=== PATIENT | female | born 1985 | race Caucasian/White ===

== ENCOUNTER 2016-09-18 03:57 | Emergency (ER) | payer MEDICAID ==
[2016-09-18 04:08] VITALS: BP 139/69
--- NOTE | 2016-09-18 04:20 | EDM.PDOC ---
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 AND BLEEDING Time Seen by Provider: 09/18/16 04:18 - History of Present Illness INITIAL COMMENTS - FREE TEXT/NARRATIVE: 31-year-old female presents emergency room with a known positive test 2 days of spotting and generally not feeling well. Patient had a single episode of spotting a couple of days ago. This is light and now she has discontinued pinkish discharge. Patient is unsure of her last menstrual period in July she had a very light period. At this time she complains of generalized abdominal discomfort and just doesn't feel that well. She complains been under a lot of stress for the last several months. Patient was recently seen in the clinic and had a positive test. Lower Abdomen Pain Score (Numeric/FACES): 4 - Related Data Allergies Allergy/AdvReac Type Severity Reaction Status Date / Time No Known Allergies Allergy Verified 09/18/16 04:08 Home Meds: Home Meds . 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 Hematologic History: Reports: Bleeding Disorder Other Hematologic History: factor V Social & Family History - Family History Family Medical History: Noncontributory - Tobacco Use Smoking Status *Q: Current Every Day Smoker Years of Tobacco use: 5 Packs/Tins Daily: 0.5 - Caffeine Use Caffeine Use: Reports: None - Alcohol Use Days Per Week of Alcohol Use: 1 Number of Drinks Per Day: 2 Total Drinks Per Week: 2 - Recreational Drug Use Recreational Drug Use: Yes Recreational Drug Type: Reports: Marijuana/Hashish ED ROS GENERAL - Review of Systems Review Of Systems: See Below Constitutional: Reports: Malaise, Fatigue. Denies: Fever, Chills HEENT: Denies: No Symptoms Respiratory: Denies: No Symptoms Cardiovascular: Denies: No Symptoms GI/Abdominal: Reports: Abdominal Pain. Denies: Constipation, Diarrhea, Nausea, Vomiting : Reports: Discharge. Denies: Dysuria, Frequency, Urgency Psychiatric: Denies: Homicidal Ideation, Mood Lability, Suicidal Ideation ED EXAM - Physical Exam Exam: See Below Exam Limited By: No Limitations General Appearance: Alert, No Apparent Distress Head: Atraumatic Neck: Normal Inspection. No: Lymphadenopathy (L), Lymphadenopathy (R) Respiratory/Chest: No Respiratory Distress, Lungs Clear, Normal Breath Sounds Cardiovascular: Regular Rate, Rhythm, No Edema, No Murmur GI/Abdominal: Normal Bowel Sounds, Soft, Other (Vague mild diffuse tenderness no rebound or guarding the tenderness does not seem to be worse in any specific area) Heart Tones: Not Holmes Back Exam: Normal Inspection. No: CVA Tenderness (L), CVA Tenderness (R) Extremities: Normal Inspection, No Pedal Edema Course - Vital Signs Last Recorded V/S: Last Vital Signs Temp 36.4 C 09/18/16 04:02 Pulse 80 09/18/16 04:02 Resp 18 09/18/16 04:02 BP 139/69 09/18/16 04:02 Pulse Ox 100 09/18/16 04:02 - Orders/Labs/Meds Orders: Active Orders 24 hr Category Date Time Status OB Transvaginal [US] Stat Exams 09/18/16 06:34 Ordered GC/CHLAMYDIA BY PCR [MOLEC] Stat Lab 09/18/16 04:29 Ordered Labs: Laboratory Tests 09/18/16 09/18/16 09/18/16 Range/Units 04:40 04:40 04:47 WBC 9.78 (3.98-10.04) K/mm3 RBC 4.64 (3.98-5.22) M/mm3 Hgb 14.7 (11.2-15.7) gm/L Hct 43.4 (34.1-44.9) % MCV 93.5 (79.4-94.8) fl MCH 31.7 (25.6-32.2) pg MCHC 33.9 (32.2-35.5) g/dl RDW Std Deviation 43.4 (36.4-46.3) fL Plt Count 168 L (182-369) K/mm3 MPV 10.0 (9.4-12.3) fl Neutrophils % (Manual) 74 H (40-60) % Band Neutrophils % 4 (0-10) % Lymphocytes % (Manual) 14 L (20-40) % Atypical Lymphs % 0 % Monocytes % (Manual) 7 (2-10) % Eosinophils % (Manual) 1 (0.7-5.8) % Basophils % (Manual) 0 L (0.1-1.2) Platelet Estimate Adequate RBC Morph Comment Normal Sodium (136-145) mEq/L Potassium (3.5-5.1) mEq/L Chloride (98-107) mEq/L Carbon Dioxide (21-32) mEq/L Anion Gap (5-15) BUN (7-18) mg/dL Creatinine (0.55-1.02) mg/dL Est Cr Clr Drug Dosing mL/min Estimated GFR (MDRD) (>60) mL/min BUN/Creatinine Ratio (14-18) Glucose (74-106) mg/dL Calcium (8.5-10.1) mg/dL Total Bilirubin (0.2-1.0) mg/dL AST (15-37) U/L ALT (14-59) U/L Alkaline Phosphatase (46-116) U/L Total Protein (6.4-8.2) g/dl Albumin (3.4-5.0) g/dl Globulin gm/dL Albumin/Globulin Ratio (1-2) HCG, Quant mIU/mL Urine Color Light yellow (Yellow) Urine Appearance Slt cloudy H (Clear) Urine pH 7.0 (5.0-8.0) Ur Specific [place] 1.010 (1.005-1.030) Urine Protein Negative (Negative) Urine Glucose (UA) Negative (Negative) Urine Ketones Negative (Negative) Urine Occult Blood Negative (Negative) Urine Nitrite Negative (Negative) Urine Bilirubin Negative (Negative) Urine Urobilinogen 0.2 (0.2-1.0) Ur Leukocyte Esterase Negative (Negative) Urine RBC 0-5 (0-5) /hpf Urine WBC 0-5 (0-5) /hpf Ur Epithelial Cells 0-5 (0-5) /hpf Urine Bacteria Rare (FEW) /hpf Urine Mucus Not seen (FEW) /hpf Urine Opiates Screen Negative (NEGATIVE) Ur Buprenorphine Scrn Negative (NEGATIVE) Ur Oxycodone Screen Negative (NEGATIVE) Urine Methadone Screen Negative (NEGATIVE) Ur Propoxyphene Screen Negative (NEGATIVE) Ur Barbiturates Screen Negative (NEGATIVE) Ur Tricyclics Screen Negative (NEGATIVE) Ur Phencyclidine Scrn Negative (NEGATIVE) Ur Amphetamine Screen Negative (NEGATIVE) U Methamphetamines Scrn Negative (NEGATIVE) U Benzodiazepines Scrn Negative (NEGATIVE) U Cocaine Metab Screen Negative (NEGATIVE) U Marijuana (THC) Screen Presumptive positive H (NEGATIVE) Ethyl Alcohol (0.00) gm% Blood Type Gel Antibody Screen 09/18/16 09/18/16 Range/Units 04:47 04:47 WBC (3.98-10.04) K/mm3 RBC (3.98-5.22) M/mm3 Hgb (11.2-15.7) gm/L Hct (34.1-44.9) % MCV (79.4-94.8) fl MCH (25.6-32.2) pg MCHC (32.2-35.5) g/dl RDW Std Deviation (36.4-46.3) fL Plt Count (182-369) K/mm3 MPV (9.4-12.3) fl Neutrophils % (Manual) (40-60) % Band Neutrophils % (0-10) % Lymphocytes % (Manual) (20-40) % Atypical Lymphs % % Monocytes % (Manual) (2-10) % Eosinophils % (Manual) (0.7-5.8) % Basophils % (Manual) (0.1-1.2) Platelet Estimate RBC Morph Comment Sodium 140 (136-145) mEq/L Potassium 3.9 (3.5-5.1) mEq/L Chloride 108 H (98-107) mEq/L Carbon Dioxide 25 (21-32) mEq/L Anion Gap 10.9 (5-15) BUN 8 (7-18) mg/dL Creatinine 0.7 (0.55-1.02) mg/dL Est Cr Clr Drug Dosing 116.39 mL/min Estimated GFR (MDRD) > 60 (>60) mL/min BUN/Creatinine Ratio 11.4 L (14-18) Glucose 125 H (74-106) mg/dL Calcium 9.0 (8.5-10.1) mg/dL Total Bilirubin 0.6 (0.2-1.0) mg/dL AST 18 (15-37) U/L ALT 39 (14-59) U/L Alkaline Phosphatase 75 (46-116) U/L Total Protein 6.9 (6.4-8.2) g/dl Albumin 3.6 (3.4-5.0) g/dl Globulin 3.3 gm/dL Albumin/Globulin Ratio 1.1 (1-2) HCG, Quant 79817.0 mIU/mL Urine Color (Yellow) Urine Appearance (Clear) Urine pH (5.0-8.0) Ur Specific [place] (1.005-1.030) Urine Protein (Negative) Urine Glucose (UA) (Negative) Urine Ketones (Negative) Urine Occult Blood (Negative) Urine Nitrite (Negative) Urine Bilirubin (Negative) Urine Urobilinogen (0.2-1.0) Ur Leukocyte Esterase (Negative) Urine RBC (0-5) /hpf Urine WBC (0-5) /hpf Ur Epithelial Cells (0-5) /hpf Urine Bacteria (FEW) /hpf Urine Mucus (FEW) /hpf Urine Opiates Screen (NEGATIVE) Ur Buprenorphine Scrn (NEGATIVE) Ur Oxycodone Screen (NEGATIVE) Urine Methadone Screen (NEGATIVE) Ur Propoxyphene Screen (NEGATIVE) Ur Barbiturates Screen (NEGATIVE) Ur Tricyclics Screen (NEGATIVE) Ur Phencyclidine Scrn (NEGATIVE) Ur Amphetamine Screen (NEGATIVE) U Methamphetamines Scrn (NEGATIVE) U Benzodiazepines Scrn (NEGATIVE) U Cocaine Metab Screen (NEGATIVE) U Marijuana (THC) Screen (NEGATIVE) Ethyl Alcohol 0.00 (0.00) gm% Blood Type O POSITIVE Gel Antibody Screen Negative - Re-Assessments/Exams Free Text/Narrative Re-Assessment/Exam: 09/18/16 05:07 Awaiting labs. Patient refused pelvic exam 09/18/16 05:39 Still awaiting her labs. 09/18/16 06:33 Finally have the quantitative hCG discussed the findings of this with the patient at this time she consents to an ultrasound. 09/18/16 07:14 The patient left the emergency department prior to getting the ultrasound done or anything resembling discharge instructions. Departure - Departure Time of Disposition: 07:15 Disposition: Eloped 07 Clinical Impression: Threatened , Pelvic pain during - Discharge Information Forms: ED Department Discharge - My Orders Last 24 Hours: My Active Orders 09/18/16 04:29 GC/CHLAMYDIA BY PCR [MOLEC] Stat 09/18/16 06:34 OB Transvaginal [US] Stat - Assessment/Plan Last 24 Hours: My Active Orders 09/18/16 04:29 GC/CHLAMYDIA BY PCR [MOLEC] Stat 09/18/16 06:34 OB Transvaginal [US] Stat
== END 2016-09-18 07:05 | disposition left against medical advice (07) ==
LOC: JD.ED 03:57
DX: O20.0 Threatened abortion (principal); F17.210 Nicotine dependence, cigarettes, uncomplicated
CPT/HCPCS: 36415; 80053; 80306; 81001; 84702; 85025; 86850; 86900; 86901; 99284; G0480; 99283

== ENCOUNTER 2017-05-10 21:40 | Inpatient (IN) | payer MEDICAID ==
[2017-05-10] MEDS ORDERED: Nalbuphine 20 MG/1 ML Amp IVPUSH PRN (22:40)
[2017-05-10] MEDS ORDERED: Sodium Chloride 0.9% 10 ML Syringe FLUSH PRN (22:40)
[2017-05-10] MEDS ORDERED: Ondansetron 4 MG/2 ML SDV IVPUSH PRN (22:40)
[2017-05-10] MEDS ORDERED: Oxytocin/Lactated Ringers 10 UNIT/1,000 ML BAG IV SCH ×2 (22:45)
[2017-05-11] MEDS: Lactated Ringers 1,000 ML IV SCH ×4 (00:03→03:57)
[2017-05-11] MEDS ORDERED: Aluminum Hydroxide/Magnesium Hydroxide/Simethicone Susp 30 ML Cup PO ONE (00:15)
[2017-05-11] MEDS ORDERED: diphenhydrAMINE 50 MG/ML SDV IVPUSH PRN (00:24)
[2017-05-11] MEDS ORDERED: fentaNYL 100 MCG/2 ML SDV EPIDUR PRN (00:24)
[2017-05-11] MEDS ORDERED: ePHEDrine 50 MG/ML SDV IVPUSH PRN (00:26)
[2017-05-11] MEDS ORDERED: Bupivacaine/fentaNYL/NS 100 ML Bag EPIDUR SCH (00:30)
--- NOTE | 2017-05-11 01:11 | PCM.PREANE ---
Preanesthetic Assessment - Anesthesia/Transfusion/Family Hx Anesthesia History: Prior Anesthesia Without Reaction Family History of Anesthesia Reaction: No Transfusion History: No Prior Transfusion(s) - Review of Systems General: No Symptoms Pulmonary: No Symptoms Cardiovascular: No Symptoms Gastrointestinal: Other (Heart burn with ) Neurological: No Symptoms Other: Reports: None - Physical Assessment Pulse: 66 O2 Sat by Pulse Oximetry: 98 Respiratory Rate: 15 Vital Signs: Last Vital Signs Temp 36.4 C 05/10/17 21:59 Pulse 66 05/10/17 23:04 Resp 15 05/10/17 21:59 BP 121/72 05/10/17 21:59 Pulse Ox 98 05/10/17 21:59 Height: 1.75 m Weight: 114.986 kg ASA Class: 2 Mental Status: Alert & Oriented x3 Airway Class: Mallampati = 1 Dentition: Reports: Normal Dentition Thyro-Mental Finger Breadths: 3 Mouth Opening Finger Breadths: 3 ROM/Head Extension: Full Lungs: Clear to Auscultation, Normal Respiratory Effort Cardiovascular: Regular Rate, Regular Rhythm - Lab Values: Laboratory Last Values WBC 9.83 K/mm3 (3.98-10.04) 05/10/17 22:50 RBC 4.12 M/mm3 (3.98-5.22) 05/10/17 22:50 Hgb 13.3 gm/L (11.2-15.7) 05/10/17 22:50 Hct 38.6 % (34.1-44.9) 05/10/17 22:50 MCV 93.7 fl (79.4-94.8) 05/10/17 22:50 MCH 32.3 pg (25.6-32.2) H 05/10/17 22:50 MCHC 34.5 g/dl (32.2-35.5) 05/10/17 22:50 RDW Std Deviation 44.8 fL (36.4-46.3) 05/10/17 22:50 Plt Count 169 K/mm3 (182-369) L 05/10/17 22:50 MPV 10.0 fl (9.4-12.3) 05/10/17 22:50 Neut % (Auto) 66.6 % (34.0-71.1) 05/10/17 22:50 Lymph % (Auto) 19.9 % (19.3-51.7) 05/10/17 22:50 [place] % (Auto) 12.0 % (4.7-12.5) 05/10/17 22:50 Eos % (Auto) 0.7 (0.7-5.8) 05/10/17 22:50 Baso % (Auto) 0.1 % (0.1-1.2) 05/10/17 22:50 Neut # (Auto) 6.54 K/mm3 (1.56-6.13) H 05/10/17 22:50 Lymph # (Auto) 1.96 K/mm3 (1.18-3.74) 05/10/17 22:50 [place] # (Auto) 1.18 K/mm3 (0.24-0.36) H 05/10/17 22:50 Eos # (Auto) 0.07 K/mm3 (0.04-0.36) 05/10/17 22:50 Baso # (Auto) 0.01 K/mm3 (0.01-0.08) 05/10/17 22:50 - Allergies Allergies/Adverse Reactions: Allergies Allergy/AdvReac Type Severity Reaction Status Date / Time No Known Allergies Allergy Verified 09/18/16 04:08 - Acknowledgements Anesthesia Type Planned: Epidural Pt an Appropriate Candidate for the Planned Anesthesia: Yes Alternatives and Risks of Anesthesia Discussed w Pt/Guardian: Yes Pt/Guardian Understands and Agrees with Anesthesia Plan: Yes PreAnesthesia Questionnaire - Past Health History 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 History: Denies 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: , 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 Psychiatric History: Reports: Anxiety Hematologic History: Reports: 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 - Past Surgical History HEENT Surgical History: Reports: Oral Surgery - SUBSTANCE USE Smoking Status *Q: Former Smoker Tobacco Use Within Last Twelve Months: Cigarettes Second Hand Smoke Exposure: Yes Days Per Week of Alcohol Use: 1 Number of Drinks Per Day: 2 Total Drinks Per Week: 2 Recreational Drug Use History: Yes Recreational Drug Type: Reports: Marijuana/Hashish - HOME MEDS Home Medications: Home Meds Multivitamin [Multi-Vitamin Daily] 1 tab PO DAILY 05/10/17 [History] - CURRENT (IN HOUSE) MEDS Current Meds: Current Medications Diphenhydramine HCl (Benadryl) 25 mg IVPUSH Q6H PRN PRN Reason: Pruritis Ephedrine Sulfate (Ephedrine Sulfate) 5 mg IVPUSH ASDIRECTED PRN PRN Reason: Hypotension Fentanyl (Sublimaze) 100 mcg EPIDUR ONETIME PRN PRN Reason: Pain Last Admin: 05/11/17 01:07 Dose: 100 mcg Fentanyl/Bupivacaine HCl (Fentanyl/Bupivacaine/Ns 2 Mcg-0.125% 100 Ml) 100 ml EPIDUR ASDIRECTED NATHANAEL Last Admin: 05/11/17 01:07 Dose: 100 ml Lactated Ringer's (Ringers, Lactated) 1,000 mls @ 100 mls/hr IV ASDIRECTED NATHANAEL Last Admin: 05/11/17 00:35 Dose: 999 mls/hr Oxytocin/Lactated Ringer's (Pitocin In Lr 10 Units/1,000 Ml) 10 unit in 1,000 mls @ 500 mls/hr IV .CONTINUOUS NATHANAEL PRN Reason: Protocol Oxytocin/Lactated Ringer's (Pitocin In Lr 10 Units/1,000 Ml) 10 unit in 1,000 mls @ 12 mls/hr IV TITRATE NATHANAEL; 2 MUNITS/MIN PRN Reason: Protocol Last Admin: 05/11/17 00:01 Dose: 2 munits/min, 12 mls/hr Nalbuphine HCl (Nubain) 10 mg IVPUSH Q2H PRN PRN Reason: Pain (moderate 4-6) Ondansetron HCl (Zofran) 4 mg IVPUSH Q4H PRN PRN Reason: Nausea/Vomiting Sodium Chloride (Saline Flush) 10 ml FLUSH ASDIRECTED PRN PRN Reason: Keep Vein Open Discontinued Medications Al Hydroxide/Mg Hydroxide (Mag-Al Plus) 30 ml PO ONETIME ONE Stop: 05/11/17 00:16
[2017-05-11] MEDS ORDERED: Calcium Carbonate 500 MG Tab.Chew PO PRN (04:54)
[2017-05-11] MEDS ORDERED: Witch Hazel Medicated Pads 100/Jar TOP PRN (09:08)
[2017-05-11] MEDS ORDERED: Lanolin 100% Cream 7 GM Tube TOP PRN (09:08)
[2017-05-11] MEDS ORDERED: Docusate Sodium 100 MG Cap PO PRN (09:08)
--- NOTE | 2017-05-11 09:12 | PCM.LDHP ---
L&D History of Present Illness - General Date of Service: 05/11/17 Admit Problem/Dx: Patient Status Order with Admit Dx/Problem 05/10/17 22:40 Patient Status [ADT] Routine 05/11/17 09:08 Patient Status [ADT] Routine Admission Diagnosis/Problem Admission Diagnosis/Problem Normal labor Source of Information: Patient History Limitations: Reports: No Limitations - History of Present Illness Introduction:: 32 year old at 38w6 days here with SROM. 2 cm. No regular contractions. 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 - Past Surgical History HEENT Surgical History: Reports: Oral Surgery Social & Family History - Family History Family Medical History: Noncontributory - Tobacco Use Smoking Status *Q: Former Smoker Years of Tobacco use: 6 Packs/Tins Daily: 0.5 Used Tobacco, but Quit: Yes Month Tobacco Last Used: october Second Hand Smoke Exposure: Yes - Caffeine Use Caffeine Use: Reports: None - Alcohol Use Days Per Week of Alcohol Use: 1 Number of Drinks Per Day: 2 Total Drinks Per Week: 2 - Recreational Drug Use Recreational Drug Use: Yes Recreational Drug Type: Reports: Marijuana/Hashish H&P Review of Systems - Review of Systems: Review Of Systems: See Below General: Reports: No Symptoms HEENT: Reports: No Symptoms Pulmonary: Reports: No Symptoms Cardiovascular: Reports: No Symptoms Gastrointestinal: Reports: No Symptoms Genitourinary: Reports: No Symptoms Musculoskeletal: Reports: No Symptoms Skin: Reports: No Symptoms Psychiatric: Reports: No Symptoms Neurological: Reports: No Symptoms Hematologic/Lymphatic: Reports: No Symptoms Immunologic: Reports: No Symptoms L&D Exam - Exam Exam: See Below - Vital Signs Vital Signs: Last Vital Signs Temp 36.4 C 05/10/17 21:59 Pulse 66 05/11/17 01:10 Resp 15 05/11/17 01:10 BP 121/72 05/10/17 21:59 Pulse Ox 98 05/11/17 01:10 Weight: 114.986 kg - OB Specific Contraction Intensity: Mild Heart Tones per Min: 145 Heart Rate (FHR) Variability: Moderate (6-25 bmp) Presentation: Vertex - Washburn Score Washburn Score Cervix Position: Midposition Washburn Score Consistency: Soft Washburn Score Effacement: >80% Washburn Score Dilation: 1-2 cm Washburn Score Infant's Station: -3 Washburn Score Total: 7 - Exam General: Alert, Oriented HEENT: PERRLA, Conjunctiva Clear, EACs Clear, EOMI, Hearing Intact, Mucosa Moist & [place], Nares Patent, Normal Nasal Septum, Posterior Pharynx Clear, TMs Clear Neck: Supple, Trachea Midline Lungs: Clear to Auscultation, Normal Respiratory Effort Cardiovascular: Regular Rate, Regular Rhythm GI/Abdominal Exam: Normal Bowel Sounds, Soft, Non-Tender, No Organomegaly, No Distention, No Abnormal Bruit, No Mass, Pelvis Stable Genitourinary: Normal external exam, Normal bimanual exam, Normal speculum exam Back Exam: Normal Inspection, Full Range of Motion Extremities: Normal Inspection, Normal Range of Motion, Non-Tender, No Pedal Edema, Normal Capillary Refill Skin: Warm, Dry, Intact Neurological: Cranial Nerves Intact, Reflexes Equal Bilateral Psychiatric: Alert, Normal Affect, Normal Mood - Patient Data Lab Results Last 24 hrs: Laboratory Results - last 24 hr 05/10/17 Range/Units 22:50 WBC 9.83 (3.98-10.04) K/mm3 RBC 4.12 (3.98-5.22) M/mm3 Hgb 13.3 (11.2-15.7) gm/L Hct 38.6 (34.1-44.9) % MCV 93.7 (79.4-94.8) fl MCH 32.3 H (25.6-32.2) pg MCHC 34.5 (32.2-35.5) g/dl RDW Std Deviation 44.8 (36.4-46.3) fL Plt Count 169 L (182-369) K/mm3 MPV 10.0 (9.4-12.3) fl Neut % (Auto) 66.6 (34.0-71.1) % Lymph % (Auto) 19.9 (19.3-51.7) % [place] % (Auto) 12.0 (4.7-12.5) % Eos % (Auto) 0.7 (0.7-5.8) Baso % (Auto) 0.1 (0.1-1.2) % Neut # (Auto) 6.54 H (1.56-6.13) K/mm3 Lymph # (Auto) 1.96 (1.18-3.74) K/mm3 [place] # (Auto) 1.18 H (0.24-0.36) K/mm3 Eos # (Auto) 0.07 (0.04-0.36) K/mm3 Baso # (Auto) 0.01 (0.01-0.08) K/mm3 Result Diagrams: 05/10/17 22:50 Problem List Initiated/Reviewed/Updated: Yes Orders Last 24hrs: Active Orders 24 hr Category Date Time Status Patient Status [ADT] Routine ADT 05/10/17 22:40 Active Patient Status [ADT] Routine ADT 05/11/17 09:08 Ordered Activity as Tolerated [RC] PER UNIT ROUTINE Care 05/11/17 09:08 Ordered Activity as Tolerated [RC] PFP Care 05/10/17 22:40 Active Communication Order [RC] ASDIRECTED Care 05/10/17 22:40 Active Heart Tones [RC] ASDIRECTED Care 05/10/17 22:40 Active Notify Provider [RC] ASDIRECTED Care 05/11/17 00:24 Active Notify Provider [RC] PFP Care 05/10/17 22:40 Active Notify Provider [RC] PRN Care 05/10/17 22:40 Active Peripheral IV Care [RC] . DIRECTED Care 05/10/17 22:40 Active Pump Management, Intrathecal [RC] ASDIRECTED Care 05/10/17 22:43 Active Urinary Catheter Assessment [RC] ASDIRECTED Care 05/10/17 22:40 Active Vital Signs [RC] ASDIRECTED Care 05/11/17 09:08 Ordered Vital Signs [RC] PER UNIT ROUTINE Care 05/10/17 22:40 Active Regular Diet [DIET] Diet 05/10/17 Dinner Active Bupivacaine/fentaNYL/NS [fentaNYL/Bupivacaine/NS 2 MCG- Med 05/11/17 00:30 Active 0.125% 100 ML] 100 ml EPIDUR ASDIRECTED Calcium Carbonate [Tums] Med 05/11/17 04:54 Active 1,000 mg PO Q2H PRN Docusate Sodium [Colace] Med 05/11/17 09:08 Ordered 100 mg PO BID PRN Ibuprofen [Motrin] Med 05/11/17 09:08 Ordered 600 mg PO Q6H PRN Lactated Ringers [Ringers, Lactated] 1,000 ml Med 05/10/17 22:45 Active IV ASDIRECTED Lanolin [Lansinoh HPA] Med 05/11/17 09:08 Ordered See Dose Instructions TOP ASDIRECTED PRN Nalbuphine [Nubain] Med 05/10/17 22:40 Active 10 mg IVPUSH Q2H PRN Ondansetron [Zofran] Med 05/10/17 22:40 Active 4 mg IVPUSH Q4H PRN Oxytocin/Lactated Ringers [Pitocin in LR 10 Units/1,000 Med 05/10/17 22:45 Active ML] 10 unit in 1,000 ml IV .CONTINUOUS Oxytocin/Lactated Ringers [Pitocin in LR 10 Units/1,000 Med 05/10/17 22:45 Active ML] 10 unit in 1,000 ml IV TITRATE Sodium Chloride 0.9% [Saline Flush] Med 05/10/17 22:40 Active 10 ml FLUSH ASDIRECTED PRN Witch Michelle [Tucks] Med 05/11/17 09:08 Ordered 1 pad TOP ASDIRECTED PRN diphenhydrAMINE [Benadryl] Med 05/11/17 00:24 Active 25 mg IVPUSH Q6H PRN ePHEDrine [ePHEDrine Sulfate] Med 05/11/17 00:26 Active 5 mg IVPUSH ASDIRECTED PRN fentaNYL [Sublimaze] Med 05/11/17 00:24 Active 100 mcg EPIDUR ONETIME PRN Assess Lochia [WOMSER] Per Unit Routine Ot 05/11/17 09:08 Ordered Assess Uterine Involution [WOMSER] Per Unit Routine Ot 05/11/17 09:08 Ordered Breast Pump [WOMSER] Per Unit Routine Ot 05/11/17 09:08 Ordered Electronic Heart Tones Ext w TOCO [WOMSER] Ot 05/10/17 22:40 Ordered Routine Electronic Heart Tones Internal [WOMSER] Per Unit Oth 05/10/17 22:40 Ordered Routine Heat Therapy [OM.PC] PRN Oth 05/11/17 09:15 Ordered Heat Therapy [OM.PC] PRN Oth 05/12/17 09:15 Ordered Medication Administration Instruction [OM.PC] Routine Oth 05/11/17 09:08 Ordered Perineal Care [OM.PC] Per Unit Routine Oth 05/11/17 09:08 Ordered Peripheral IV Insertion Adult [OM.PC] Routine Oth 05/10/17 22:40 Ordered Sitz Bath [OM.PC] Per Unit Routine Oth 05/11/17 09:08 Ordered Resuscitation Status Routine Resus Stat 05/10/17 22:40 Ordered Medication Orders Calcium Carbonate/Glycine (Tums) 1,000 mg PO Q2H PRN PRN Reason: Indigestion Last Admin: 05/11/17 05:06 Dose: 1,000 mg Diphenhydramine HCl (Benadryl) 25 mg IVPUSH Q6H PRN PRN Reason: Pruritis Ephedrine Sulfate (Ephedrine Sulfate) 5 mg IVPUSH ASDIRECTED PRN PRN Reason: Hypotension Fentanyl (Sublimaze) 100 mcg EPIDUR ONETIME PRN PRN Reason: Pain Last Admin: 05/11/17 01:07 Dose: 100 mcg Fentanyl/Bupivacaine HCl (Fentanyl/Bupivacaine/Ns 2 Mcg-0.125% 100 Ml) 100 ml EPIDUR ASDIRECTED [facility] Last Admin: 05/11/17 01:07 Dose: 100 ml Lactated Ringer's (Ringers, Lactated) 1,000 mls @ 100 mls/hr IV ASDIRECTED [facility] Last Admin: 05/11/17 03:57 Dose: 999 mls/hr Infusion: 05/11/17 02:54 Dose: 999 mls/hr Admin: 05/11/17 01:53 Dose: 999 mls/hr Infusion: 05/11/17 01:36 Dose: 999 mls/hr Admin: 05/11/17 00:35 Dose: 999 mls/hr Infusion: 05/11/17 00:35 Dose: 999 mls/hr Admin: 05/11/17 00:03 Dose: 999 mls/hr Oxytocin/Lactated Ringer's (Pitocin In Lr 10 Units/1,000 Ml) 10 unit in 1,000 mls @ 500 mls/hr IV .CONTINUOUS NATHANAEL PRN Reason: Protocol Oxytocin/Lactated Ringer's (Pitocin In Lr 10 Units/1,000 Ml) 10 unit in 1,000 mls @ 12 mls/hr IV TITRATE NATHANAEL; 2 MUNITS/MIN PRN Reason: Protocol Last Titration: 05/11/17 05:20 Dose: 11 munits/min, 66 mls/hr Titration: 05/11/17 04:50 Dose: 9 munits/min, 54 mls/hr Titration: 05/11/17 03:58 Dose: 7 munits/min, 42 mls/hr Titration: 05/11/17 02:44 Dose: 5 munits/min, 30 mls/hr Titration: 05/11/17 01:30 Dose: 4 munits/min, 24 mls/hr Admin: 05/11/17 00:01 Dose: 2 munits/min, 12 mls/hr Nalbuphine HCl (Nubain) 10 mg IVPUSH Q2H PRN PRN Reason: Pain (moderate 4-6) Ondansetron HCl (Zofran) 4 mg IVPUSH Q4H PRN PRN Reason: Nausea/Vomiting Sodium Chloride (Saline Flush) 10 ml FLUSH ASDIRECTED PRN PRN Reason: Keep Vein Open Assessment/Plan Comment:: Admit. CBC, Epidural prn. Pitocin if needed to augment. Anticipate
--- NOTE | 2017-05-11 14:15 | PCM48HPAN ---
Post Anesthesia Note - EVALUATION WITHIN 48HRS OF ANESTHETIC Vital Signs in Normal Range: Yes Patient Participated in Evaluation: No (pt sleeping, doing well from report from RN) Respiratory Function Stable: Yes Airway Patent: Yes Cardiovascular Function Stable: Yes Hydration Status Stable: Yes Pain Control Satisfactory: Yes Nausea and Vomiting Control Satisfactory: Yes Mental Status Recovered: Yes
[2017-05-11] MEDS: Ibuprofen 600 MG Tab PO PRN ×2 (15:23→21:38)
[2017-05-11] MEDS ORDERED: Bupivacaine 0.25% 10 ML SDV ONE (22:22)
[2017-05-12 03:31] VITALS: BP 102/58
--- NOTE | 2017-05-12 06:07 | PCM.DCSUM1 ---
Discharge Summary - Discharge Data Discharge Date: 05/12/17 Discharge Disposition: Home, Self-Care 01 Condition: Good - Patient Summary/Data Hospital Course: Admitted in labor. Uncomplicated and unremarkable course. - Patient Instructions Diet: Usual Diet as Tolerated Activity: No Strenuous Activities Activity, Other: pelvic rest until 6 weeks Driving: May Drive Today Showering/Bathing: May Shower Wound/Incision Care: Keep Operative Site/Wound Site Clean and Dry, Change Dressing Daily, Do NOT Change Dressing Notify Provider of: Fever, Increased Pain, Swelling and Redness, Drainage, Nausea and/or Vomiting - Discharge Plan Home Medications: Home Meds Multivitamin [Multi-Vitamin Daily] 1 tab PO DAILY 05/10/17 [History] Referrals: Jacki Armas MD [Primary Care Provider] - (4-6 weeks) - Discharge Summary/Plan Comment DC Time >30 min.: No - General Info Date of Service: 05/12/17 Functional Status: Reports: Pain Controlled - Review of Systems General: Reports: No Symptoms HEENT: Reports: No Symptoms Pulmonary: Reports: No Symptoms Cardiovascular: Reports: No Symptoms Gastrointestinal: Reports: No Symptoms Genitourinary: Reports: No Symptoms Musculoskeletal: Reports: No Symptoms Skin: Reports: No Symptoms Neurological: Reports: No Symptoms Psychiatric: Reports: No Symptoms - Patient Data Vitals - Most Recent: Last Vital Signs Temp 36.4 C 05/12/17 03:09 Pulse 57 L 05/12/17 03:09 Resp 16 05/12/17 03:09 BP 102/58 L 05/12/17 03:09 Pulse Ox 99 05/12/17 03:09 Weight - Most Recent: 114.986 kg I&O - Last 24 hours: Intake & Output 05/11/17 05/11/17 05/12/17 14:59 22:59 06:59 Intake Total 0 Balance 0 Med Orders - Current: Current Medications Calcium Carbonate/Glycine (Tums) 1,000 mg PO Q2H PRN PRN Reason: Indigestion Last Admin: 05/11/17 05:06 Dose: 1,000 mg Diphenhydramine HCl (Benadryl) 25 mg IVPUSH Q6H PRN PRN Reason: Pruritis Docusate Sodium (Colace) 100 mg PO BID PRN PRN Reason: Constipation Emollient Ointment (Lansinoh Hpa) 0 gm TOP ASDIRECTED PRN PRN Reason: Sore Nipples Ephedrine Sulfate (Ephedrine Sulfate) 5 mg IVPUSH ASDIRECTED PRN PRN Reason: Hypotension Fentanyl (Sublimaze) 100 mcg EPIDUR ONETIME PRN PRN Reason: Pain Last Admin: 05/11/17 01:07 Dose: 100 mcg Fentanyl/Bupivacaine HCl (Fentanyl/Bupivacaine/Ns 2 Mcg-0.125% 100 Ml) 100 ml EPIDUR ASDIRECTED NATHANAEL Last Admin: 05/11/17 01:07 Dose: 100 ml Lactated Ringer's (Ringers, Lactated) 1,000 mls @ 100 mls/hr IV ASDIRECTED NATHANAEL Last Admin: 05/11/17 03:57 Dose: 999 mls/hr Oxytocin/Lactated Ringer's (Pitocin In Lr 10 Units/1,000 Ml) 10 unit in 1,000 mls @ 500 mls/hr IV .CONTINUOUS NATHANAEL PRN Reason: Protocol Oxytocin/Lactated Ringer's (Pitocin In Lr 10 Units/1,000 Ml) 10 unit in 1,000 mls @ 12 mls/hr IV TITRATE NATHANAEL; 2 MUNITS/MIN PRN Reason: Protocol Last Titration: 05/11/17 05:20 Dose: 11 munits/min, 66 mls/hr Ibuprofen (Motrin) 600 mg PO Q6H PRN PRN Reason: Mild pain or fever Last Admin: 05/11/17 21:38 Dose: 600 mg Nalbuphine HCl (Nubain) 10 mg IVPUSH Q2H PRN PRN Reason: Pain (moderate 4-6) Ondansetron HCl (Zofran) 4 mg IVPUSH Q4H PRN PRN Reason: Nausea/Vomiting Sodium Chloride (Saline Flush) 10 ml FLUSH ASDIRECTED PRN PRN Reason: Keep Vein Open Witch Michelle (Tucks) 1 pad TOP ASDIRECTED PRN PRN Reason: Hemorrhoid pain Last Admin: 05/11/17 10:42 Dose: 1 pad Discontinued Medications Al Hydroxide/Mg Hydroxide (Mag-Al Plus) 30 ml PO ONETIME ONE Stop: 05/11/17 00:16 Last Admin: 05/11/17 01:18 Dose: 30 ml - Exam General: Reports: Alert, Oriented HEENT: Reports: Pupils Equal, Pupils Reactive, EOMI, Mucous Membr. Moist/[place] Neck: Reports: Supple Lungs: Reports: Clear to Auscultation, Normal Respiratory Effort Cardiovascular: Reports: Regular Rate, Regular Rhythm GI/Abdominal Exam: Normal Bowel Sounds, Soft, Non-Tender, No Organomegaly, No Distention, No Abnormal Bruit, No Mass, Pelvis Stable Back Exam: Reports: Normal Inspection, Full Range of Motion Extremities: Normal Inspection, Normal Range of Motion, Non-Tender, No Pedal Edema, Normal Capillary Refill Skin: Reports: Warm, Dry, Intact Wound/Incisions: Reports: Healing Well Neurological: Reports: No New Focal Deficit Psy/Mental Status: Reports: Alert, Normal Affect, Normal Mood *Q Meaningful Use (DIS) - VTE *Q VTE Criteria *Q: - Stroke *Q Stroke Criteria *Q: - AMI *Q AMI Criteria *Q:
== END 2017-05-12 10:50 | disposition home or self-care (01) | DRG 775 ==
LOC: JD.OBCHECK 21:40 → JD.OB 21:42 → JD.OBCHECK 22:40 → OBSVTOIN 05-11 08:41 → JD.OB 05-11 08:41
PROVIDERS: ADMIT Obstetrics & Gynecology; ATTEND Obstetrics & Gynecology
PROC: 10E0XZZ Delivery of Products of Conception, External Approach (ICD-10-PCS; principal; 2017-05-11)
PROC: 00HU33Z Insertion of Infusion Device into Spinal Canal, Percutaneous Approach (ICD-10-PCS; 2017-05-11)
PROC: 3E0R3BZ Introduction of Anesthetic Agent into Spinal Canal, Percutaneous Approach (ICD-10-PCS; 2017-05-11)
DX: O42.92 Full-term premature rupture of membranes, unspecified as to length of time between rupture and onset of labor (principal); Z3A.39 39 weeks gestation of pregnancy; Z37.0 Single live birth; Z87.891 Personal history of nicotine dependence
CPT/HCPCS: 36415; 51702; 59409; 85025; A9270-GY; J2590; J3010; J7120